=== PATIENT | female | born 2000 | race Caucasian/White ===

== ENCOUNTER 2023-05-17 18:04 | Emergency (ER) | payer MEDICAID, SELFPAY ==
[2023-05-17 18:06] VITALS: BP 122/86; PULSE 70; RESP 17; TEMP 36.4; O2SAT 100
[2023-05-17] MEDS: Ketorolac 15 MG/ML VIAL IVP (18:34)
[2023-05-17] MEDS: Normal Saline 1,000 ML 1000 ML IV (18:35)
[2023-05-17] MEDS: Ondansetron 4 MG/2 ML VIAL IVP (18:35)
[2023-05-17 18:36] LABS: Abs Immature Grans 0.06 10^3/uL (0.0-0.06); Absolute Monocyte Count 0.43 10^3/uL (0.1-0.8); Basophils % 0.1; HCT 40.8 % (36.0-46.0); HGB 13.9 g/dL (11.2-15.7); Immature Grans % 0.4; Lymphocytes % 7.3; MCH 30.5 pg (27.0-33.0); MCHC 34.1 % (32.0-36.0); MCV 90 fL (80-95); MPV 9.2 fL (8.0-11.0); Monocytes % 3.2; Platelet Count 316 10^3/uL (130-400); RBC 4.56 10^6/uL (3.93-5.22); RDW 12.5 % (11.7-14.6); RDW-SD 40.9 fL
[2023-05-17 18:38] LABS: Absolute Basophil Count 0.01 10^3/uL (0.0-0.2); Absolute Lymphocyte Count 0.99 10^3/uL (1.2-3.4); Absolute Neutrophil Count 12.02 10^3/uL (1.2-6.7)
[2023-05-17 18:52] LABS: ALT 30 U/L (14-59); AST 14 U/L (15-37); Albumin 3.9 g/dL (3.4-5.0); Alkaline Phosphatase 73 U/L (46-116); Anion Gap 15.1 mmol/L (3-11); BUN 8 mg/dL (7-18); Bilirubin, Total 0.8 mg/dL (0.2-1.0); CO2 19.9 mmol/L (21.0-32.0); CREATININE 0.8 mg/dL (0.55-1.02); Calcium 9.4 mg/dL (8.5-10.1); Chloride 103 mmol/L (98-107); Estimated GFR 105.45 (mL/min/1.73m2); Glucose 124 mg/dL (74-106); Magnesium 1.6 mg/dL (1.8-2.4); Potassium 3.5 mmol/L (3.5-5.1); Sodium 138 mmol/L (136-145); Total Protein 7.4 g/dL (6.4-8.2)
--- NOTE | 2023-05-17 19:15 | ED.GENADUL_ITS ---
Discharge Plan Discharge Details Chief Complaint: Abd Prob Primary Care Provider: Unknown,Unknown ED Provider: Amber Jesus Home Meds and New Rx's Prescriptions: No Action No Known Home Meds Medical Decision Making 23yo F with history of endometriosis presenting with severe lower abdominal cramping and vomiting, onset this morning when she started menstruating. Similar symptoms in the past which she attributes to her endometriosis but today is more severe than usual. Vital signs reassuring on arrival, no abdominal tenderness on exam though she does appear uncomfortable and is vomiting. No Will try IV toradol and IV zofran for symptoms as well as IVFB; with reassuring abdominal exam will defer imaging for now and if symptomatically improved with treatment may be appropriate for discharge home. Labs reviewed as below, CBC with mild leukocytosis, CMP with slight acidosis with bicarb of 19.9, gap of 15.1, borderline elevated lactate at 2.0. Given minimal PO and frequent vomiting, may be ketotic. On reassessment patient with minimal improvement in symptoms, continued vomiting. Will try IV reglan and IV morphine; given persistent symptoms and lab abnormalities will get CT abd/pelvis to further ev aluate for acute intrabdominal process including obstruction, appendicitis, etc though abdomen remains non-peritoneal with no focal tenderness. Young and no risk factors for mesenteric ischemia. UA and Upreg pending. Signed out to overnight physician at 1999, plan to followup repeat lactate and CT, assess for symptom control. Disposition pending results and clinical course. Lab Data Lab results reviewed: Yes I reviewed the patient's lab results. Labs: Laboratory Tests Range/Units 05/17/23 05/17/23 05/17/23 15:25 15:25 15:25 WBC (4.4-10.8) 10^3/uL 13.50 H RBC (3.93-5.22) 10^6/uL 4.56 Hgb (11.2-15.7) g/dL 13.9 Hct (36.0-46.0) % 40.8 MCV (80-95) fL 90 MCH (27.0-33.0) pg 30.5 MCHC (32.0-36.0) % 34.1 RDW (11.7-14.6) % 12.5 Plt Count (130-400) 10^3/uL 316 MPV (8.0-11.0) fL 9.2 Immature Gran % 0.4 Neutrophils % 89.0 Lymphocytes % 7.3 Monocytes % 3.2 Eosinophils % 0.0 Basophils % 0.1 Nucleated RBC % (0.0-0.3) % 0.0 Absolute Neutrophils (1.2-6.7) 10^3/uL 12.02 H Absolute Lymphocytes (1.2-3.4) 10^3/uL 0.99 L Absolute Monocytes (0.1-0.8) 10^3/uL 0.43 Absolute Eosinophils (0.0-0.7) 10^3/uL 0.00 Absolute Basophils (0.0-0.2) 10^3/uL 0.01 VBG Lactate (0.6-1.4) mmol/L 2.0 H Sodium (136-145) mmol/L 138 Potassium (3.5-5.1) mmol/L 3.5 Chloride (98-107) mmol/L 103 Carbon Dioxide (21.0-32.0) mmol/L 19.9 L Anion Gap (3-11) mmol/L 15.1 H BUN (7-18) mg/dL 8 Creatinine (0.55-1.02) mg/dL 0.8 Est GFR (CKD-EPI 2020) (mL/min/1.73m2) 105.45 Glucose (74-106) mg/dL 124 H Calcium (8.5-10.1) mg/dL 9.4 Magnesium (1.8-2.4) mg/dL 1.6 L Total Bilirubin (0.2-1.0) mg/dL 0.8 AST (15-37) U/L 14 L ALT (14-59) U/L 30 Alkaline Phosphatase (46-116) U/L 73 Total Protein (6.4-8.2) g/dL 7.4 Albumin (3.4-5.0) g/dL 3.9 HPI General Mode of arrival: ambulatory . Date/Time Provider Initiated Documentation: 05/17/23 18:21 . Limitations to Documentation: no limitations . Information obtained by: patient . HPI Narrative: 23yo F with history of endometriosis presenting with severe lower abdominal cramping and vomiting. Symptoms started this morning when she started menstruating. She has had similar symptoms in the past though usually not this severe. Does not currently have an assembler crimper. She has been unable to keep down fluids today. Emesis is nonbloody nonbilious. Tried motrin at home without improvement in symptoms. She is otherwise in her usual state of health with no fevers, chills, rash, chest pain, shortness of breath, dysuria, hematuria, lightheadedness, diarrhea, constipation, bloody stool, or other concerns. Related Data Home Medications Medication Instructions Recorded Confirmed Unknown [No Known Home Meds] 05/17/23 05/17/23 Allergies Allergy/AdvReac Type Severity Reaction Status Date / Time No Known Allergies Allergy Unverified 05/17/23 18:10 General Stated Complaint: Abd Prob CACHORRO: 3 Review of Systems Narrative: see HPI PFSH Social History Smoking/Tobacco Use Status: Current every day Tobacco Type: cigarettes Smoking risk assessment performed?: Yes Alcohol Intake: current Alcohol Intake frequency: 0-2 drinks per day Drug use: Never Substance use type: does not use Exam Narrative Exam Narrative: General: Alert, appears uncomfortable, clutching emesis bag. Head: Normocephalic, atraumatic Neck: Trachea midline, Neck supple. ENT: MMM. No oropharygeal lesions or exudate. Cardiac: RRR, no murmurs appreciated Resp: No respiratory distress. CTAB. Abd: Soft, non-distended, nontender. : No suprapubic tenderness. No CVA tenderness. Extremities: No deformities. No peripheral edema. Neurologic: GCS 15. Moves all extremities freely against gravity Course Vital Signs Vital signs: Vital Signs Temperature 36.4 C L 05/17/23 18:06 Pulse 70 05/17/23 18:06 Respiratory Rate 17 05/17/23 18:06 Blood Pressure 122/86 05/17/23 18:06 Pulse Oximetry 100 05/17/23 18:06 Temperature 36.4 C L 05/17/23 18:06 Temperature Source Temporal Artery Scan 05/17/23 18:06 Pulse 70 05/17/23 18:06 Respiratory Rate 17 05/17/23 18:06 Respiratory Effort Normal 05/17/23 18:09 Blood Pressure 122/86 05/17/23 18:06 Blood Pressure Position Sitting 05/17/23 18:06 Pulse Oximetry 100 05/17/23 18:06 Oxygen Delivery Method Room Air 05/17/23 18:06 Oxygen Flow Rate 0 09/05/23 18:06 Pain Level 9 05/17/23 18:14 Lab/Test Results Lab/Test Results: Laboratory Tests Range/Units 05/17/23 05/17/23 05/17/23 15:25 15:25 15:25 WBC (4.4-10.8) 10^3/uL 13.50 H RBC (3.93-5.22) 10^6/uL 4.56 Hgb (11.2-15.7) g/dL 13.9 Hct (36.0-46.0) % 40.8 MCV (80-95) fL 90 MCH (27.0-33.0) pg 30.5 MCHC (32.0-36.0) % 34.1 RDW (11.7-14.6) % 12.5 Plt Count (130-400) 10^3/uL 316 MPV (8.0-11.0) fL 9.2 Immature Gran % 0.4 Neutrophils % 89.0 Lymphocytes % 7.3 Monocytes % 3.2 Eosinophils % 0.0 Basophils % 0.1 Nucleated RBC % (0.0-0.3) % 0.0 Absolute Neutrophils (1.2-6.7) 10^3/uL 12.02 H Absolute Lymphocytes (1.2-3.4) 10^3/uL 0.99 L Absolute Monocytes (0.1-0.8) 10^3/uL 0.43 Absolute Eosinophils (0.0-0.7) 10^3/uL 0.00 Absolute Basophils (0.0-0.2) 10^3/uL 0.01 VBG Lactate (0.6-1.4) mmol/L 2.0 H Sodium (136-145) mmol/L 138 Potassium (3.5-5.1) mmol/L 3.5 Chloride (98-107) mmol/L 103 Carbon Dioxide (21.0-32.0) mmol/L 19.9 L Anion Gap (3-11) mmol/L 15.1 H BUN (7-18) mg/dL 8 Creatinine (0.55-1.02) mg/dL 0.8 Est GFR (CKD-EPI 2020) (mL/min/1.73m2) 105.45 Glucose (74-106) mg/dL 124 H Calcium (8.5-10.1) mg/dL 9.4 Magnesium (1.8-2.4) mg/dL 1.6 L Total Bilirubin (0.2-1.0) mg/dL 0.8 AST (15-37) U/L 14 L ALT (14-59) U/L 30 Alkaline Phosphatase (46-116) U/L 73 Total Protein (6.4-8.2) g/dL 7.4 Albumin (3.4-5.0) g/dL 3.9 Sign Out Sign Out Data: Sign Out Comment: 23yo F with history of endometriosis with severe lower abdominal cramping and vomiting which she attributes to her endometriosis. Mildly acidotic, symptoms unrelieved by toradol and zofran. Trying reglan/morphine. Pending UA/upreg, repeat lactic (initial 2.0) and CT abd/pelvis. If reassuring and symptoms improved would dc home with antiemetics, +/- logistics management specialist referral Last updated by Amber Jeuss MD at 05/17/23 19:39 PAWSS Have you Been Recently Intoxicated or Drunk Within the Last 30 days?: No Have you Ever Experienced Previous Episodes of Alcohol Withdrawal?: No Have you ever Experienced Withdrawal Seizures?: No Have you ever Experienced Delirium Tremens(DT)s?: No Have you ever undergone Alcohol Rehabilitation Treatment (i.e, inpt ot outpatient treatment programs)?: No Have you ever Experienced Blackouts?: No Have you ever Combined Alcohol with other Downers within the last 90 days?: No Have you ever Combined Alcohol with any other Substance of Abuse during the last 90 days?: No Result: 0
[2023-05-17] MEDS: MORPHine 4 MG/ML SYR IVP (19:19)
[2023-05-17] MEDS: Metoclopramide 10 MG/2 ML VIAL IVP (19:19)
[2023-05-17] MEDS: Normal Saline - Diluent 50 ML VIAL IJ (19:38)
[2023-05-17] MEDS: Normal Saline Flush 10 ML SYR IJ (19:38)
[2023-05-17] MEDS: Omnipaque 350 MG/ML 100 ML BTL IJ (19:43)
--- NOTE | 2023-05-17 19:47 | DI.CT_ITS ---
Exam(s) CT ABDOMEN PELVIS W EXAM: CT ABDOMEN PELVIS W CLINICAL HISTORY: crampy lower abdominal pain, vomiting TECHNIQUE: Imaging Protocol: Axial computed tomography images with coronal and sagittal reformatted images were created and reviewed CONTRAST MATERIAL: Intravenous: Omnipaque 350 Contrast volume:100 mL Oral: yes / no COMPARISON: No exams were available for comparison FINDINGS: ABDOMEN: Lung Bases: Normal where visualized. Liver: Normal density. No measurable mass. Portal, Superior Mesenteric, and Splenic Veins: Unremarkable. Gallbladder and Biliary Tract: No radiodense calculus or dilation. Pancreas: Normal density, no abnormal calcifications or inflammatory process. Spleen: Normal. Adrenals: No masses seen. Kidneys: Normal size, contour and axis. No radiodense stones or obstructive uropathy. No masses seen. Abdominal Aorta: Abdominal portion non-dilated. Bowel: No obstruction or bowel wall thickening. No evidence of appendicitis. Peritoneal Cavity: No ascites, collection or mesenteric inflammatory response. No free air. Lymph Nodes: Within normal limits. Bones: Within normal limits for the patient's age. Soft Tissues: Unremarkable. PELVIS: Bladder: Symmetric distention, no gross wall thickening. Reproductive Organs: Unremarkable as visualized. Lymph Nodes: Within normal limits. Bones: Within normal limits for the patient's age. IMPRESSION: No acute abdominal or pelvic process. RADIATION DOSE DELIVERED: 1,132.48mGy.cm Total DLP DATA REPOSITORY: All CT scans at this facility are submitted to the National Radiology Data Registry (NRDR) Dose Index Registry (DIR) with the [employer] (A[employer]). RADIATION OPTIMIZATION: All CT scans at this facility use at least one of these dose optimization te chniques: automated exposure control; mA and/or kV adjustment per patient size (includes targeted exa ms where dose is matched to clinical indication); or iterative reconstruction.
[2023-05-17 20:01] LABS: Lactate 1.3 mmol/L (0.6-1.4)
--- NOTE | 2023-05-17 20:11 | DI.VRAD_ITS ---
PROCEDURE INFORMATION: Exam: CT Abdomen And Pelvis With Contrast Exam date and time: 05/17/2023 7:44 PM Age: 23 years old Clinical indication: Abdominal pain; Other: Lower TECHNIQUE: Imaging protocol: Computed tomography of the abdomen and pelvis with contrast. Radiation optimization: All CT scans at this facility use at least one of these dose optimization techniques: automated exposure control; mA and/or kV adjustment per patient size (includes targeted exams where dose is matched to clinical indication); or iterative reconstruction. Contrast material: OMNI 350; Contrast volume: 100 ml; Contrast route: INTRAVENOUS (IV); COMPARISON: No relevant prior studies available. FINDINGS: Liver: Normal. No mass. Gallbladder and bile ducts: Normal. No calcified stones. No ductal dilation. Pancreas: Normal. No ductal dilation. Spleen: Normal. No splenomegaly. Adrenal glands: Normal. No mass. Kidneys and ureters: Normal. No hydronephrosis. There is no evidence of renal or ureteral calcifications. Stomach and bowel: Unremarkable. No obstruction. No mucosal thickening. Appendix: Normal appendix Intraperitoneal space: Unremarkable. No free air. No significant fluid collection. Vasculature: Unremarkable. No abdominal aortic aneurysm. Lymph nodes: Unremarkable. No enlarged lymph nodes. Urinary bladder: Unremarkable as visualized. Reproductive: Unremarkable as visualized. Bones/joints: Unremarkable. No acute fracture. Soft tissues: Unremarkable. IMPRESSION: No acute process Dictated and Authenticated by: Johny Yan MD. Ordering:CLAUDETTE Clark MD
--- NOTE | 2023-05-17 20:25 | W.EDPROG ---
Date of service: 05/17/23 Time of Service: 20:00 Medical Decision Making MDM: Summary: Patient is still complaining of abdominal pain nausea. Patient had labs done which is mildly elevation of the white count which she evaluated. Patient also states after hydration has improved significantly. CT scan demonstrated by the radiologist negative. Urinalysis shows ketones but the CAT scan does not show any kidney stones. Patient was pain has completely resolved. She is probably nauseous. Patient will be discharged home on analgesics. 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 Data Review Analysis All the data on this patient was reviewed by me including laboratory Differential Diagnosis: 1. endometriosis 2.renal colic 3.acute appendicitis 4.ruptured viscus 5. Consultants: Shared disposition: Patient understands disposition agrees she is able to go home with follow up with REPAIRER CYLINDER HEADS Impression: Medical Records Medical records reviewed: Yes I reviewed the patient's medical records. Sign Out Sign Out Data: Sign Out Comment: 23yo F with history of endometriosis with severe lower abdominal cramping and vomiting which she attributes to her endometriosis. Mildly acidotic, symptoms unrelieved by toradol and zofran. Trying reglan/morphine. Pending UA/upreg, repeat lactic (initial 2.0) and CT abd/pelvis. If reassuring and symptoms improved would dc home with antiemetics, +/- washer hand referral Last updated by Amber Jesus MD at 05/17/23 19:39 Discharge Plan Disposition Patient Disposition: Home Condition: Improving Discharge Details Clinical Impression: Endometriosis Primary Care Provider: Unknown,Unknown ED Provider: Huang Crouch Meds and New Rx's Prescriptions: New ondansetron 4 mg tablet,disintegrating 4 mg PO Q8H 3 Days Qty: 9 0RF naproxen 375 mg tablet 375 mg PO TID PRN (Reason: pain) Qty: 30 0RF Discharge Data Discharge Physician: Huang Crouch
[2023-05-17 20:43] LABS: Bilirubin Negative (Negative); Blood Moderate (Negative); Clarity Clear (Clear); Glucose Negative (Negative); Ketones 40 mg/dL (Negative); Leukocyte Esterase Negative (Negative); Nitrite Negative (Negative); Urobilinogen 0.2 mg/dL (Up to 0.2); pH >= 9.0 (5-8)
[2023-05-17 20:51] LABS: Bacteria Rare HPF (Negative); C & S Indicated? No; Casts Negative LPF (Negative); Crystals Negative HPF (Negative); Epithelial Cells Rare HPF (Negative); Mucus Trace (Negative); WBC 0-2 HPF (0-5)
[2023-05-17] MEDS: Ondansetron O.D.T. 4 MG TABEF, 3 TABS/BTL PO (21:36)
== END 2023-05-17 21:36 | disposition home or self-care (01) ==
PROVIDERS: Student in an Organized Health Care Education/Training Program; Emergency Provider Emergency Medicine Emergency Medical Services
DX: N80.9 Endometriosis, unspecified (principal); R11.10 Vomiting, unspecified
CPT/HCPCS: 80053; 96361; 96374; 96375; 99285; 74177; 81003; 81015; 83605; 83735; 85025; 99284; J1885; J2270; J2405; J2765; J3490